=== PATIENT | female | born 1965 | race Caucasian/White ===

== ENCOUNTER → 2016-09-10 | Outpatient (CLI) | payer OTHER ==
--- NOTE | 2016-09-10 16:52 | REP ---
Clinical: Lower back pain and sciatica. Technique: AP, lateral, bilateral oblique and coned-down views of the lumbosacral spine. Findings: Mild to early moderate multilevel degenerative changes include endplate sclerosis with disc space narrowing and marginal osteophytes. Alignment and lordosis maintained. No acute fracture / compression injury or subluxation. Hypertrophic facet changes at L5-S1 are suggested as well. Impression: Moderate multilevel degenerative changes. Signed by Bello Cote MD 09/10/2016 04:44 P
== END ==
LOC: M ADAMS 16:24
PROVIDERS: ATTEND Physician Assistant
DX: M51.16 Intervertebral disc disorders with radiculopathy, lumbar region (principal)

== ENCOUNTER → 2016-10-31 | Outpatient (CLI) | payer OTHER ==
--- NOTE | 2016-10-31 09:02 | REPMRS ---
Patient History The patient states she has not had a clinical breast exam in over a year. No known family history of cancer. Digital Woman Screen Mammo: October 31, 2016 - Exam #: [id number] Bilateral CC and MLO view(s) were taken. Technologist: Humera Gomez, Technologist Prior study comparison: October 19, 2015, digital woman screen mammo performed at [facility] to [facility]. December 25, 2011, digital woman screen mammo performed at [facility] to [facility]. FINDINGS: The breast tissue is heterogeneously dense. This may lower the sensitivity of mammography. There has been no change in the appearance of the mammogram from the prior studies. There is a moderate amount of residual fibroglandular tissue which is fairly symmetric. There is no interval development of dominant mass, areas of architectural distortion, or clustered microcalcification typical of malignancy. ASSESSMENT: BI-RADS/ACR category 1 mammogram. Negative. Recommendation Routine screening mammogram in 1 year (for women over age 40). This mammogram was interpreted with the aid of an FDA-approved computer-aided dectection system. Electronically Signed By: Darek Mcdonough MD 10/31/16 0902
== END ==
LOC: M WHC 07:57
PROVIDERS: ATTEND Physician Assistant
DX: Z12.31 Encounter for screening mammogram for malignant neoplasm of breast (principal)

== ENCOUNTER → 2016-11-01 | Outpatient (REF) | payer OTHER | LOC: M LAB REF 12:13 | PROVIDERS: ATTEND Physician Assistant | DX: R30.0 Dysuria (principal) ==

== ENCOUNTER → 2017-07-02 | Outpatient (REF) | payer OTHER ==
[2017-07-02 14:54] LABS: BASO # 0.1 10^3/uL (0.0-0.2); BASO % 0.9 % (0.0-1.0); EOS # 0.2 10^3/uL (0.0-0.50); EOS % 2.9 % (0.0-3.0); HEMATOCRIT 44.3 % (36.0-47.0); HEMOGLOBIN 15.2 g/dl (12.0-15.5); IMMATURE GRANULOCYTE % 0.3 % (0-3.0); LYMPH % 37.8 % (24.0-44.0); MEAN CORPUSCULAR HEMOGLOBIN 31.5 pg (27.0-33.0); MEAN CORPUSCULAR HGB CONC 34.3 g/dl (32.0-36.5); MEAN CORPUSCULAR VOLUME 91.9 fl (80.0-96.0); MONO # 0.7 10^3/uL (0.0-0.8); MONO % 8.4 % (0.0-5.0); NEUTROPHILS % 49.7 % (36.0-66.0); PLATELET COUNT, AUTOMATED 313 10^3/uL (150-450); RED BLOOD COUNT 4.82 10^6/uL (4.00-5.40); RED CELL DISTRIBUTION WIDTH 12.5 % (11.5-14.5); WHITE BLOOD COUNT 7.9 10^3/uL (4.0-10.0)
[2017-07-02 14:56] LABS: APPEARANCE, URINE HAZY (CLEAR); BACTERIA, URINE AUTO 1+ (NEGATIVE); BILIRUBIN, URINE AUTO NEGATIVE (NEGATIVE); BLOOD, URINE BLOOD NEGATIVE (NEGATIVE); COLOR, URINE YELLOW (YELLOW); GLUCOSE, URINE (UA) AUTO NEGATIVE (NEGATIVE); KETONE, URINE AUTO TRACE mg/dL (NEGATIVE); LEUKOCYTE ESTERASE, URINE AUTO NEGATIVE (NEGATIVE); MUCUS, URINE SMALL (NEGATIVE); NITRITE, URINE AUTO NEGATIVE (NEGATIVE); PROTEIN, URINE AUTO NEGATIVE (NEGATIVE); RBC, URINE AUTO 0 /HPF (0-3); SPECIFIC GRAVITY URINE AUTO 1.014 (1.002-1.035); SQUAMOUS EPITHELIAL CELL UR AU 5 /HPF (0-6); UROBILINOGEN, URINE AUTO 0.2 mg/dL (0.0-2.0); WBC, URINE AUTO 1 /HPF (0-3)
[2017-07-02 15:07] LABS: ANION GAP 3 MEQ/L (8-16); BLOOD UREA NITROGEN 14 MG/DL (7-18); CARBON DIOXIDE LEVEL 29 MEQ/L (21-32); CHLORIDE LEVEL 109 MEQ/L (98-107); CREATININE FOR GFR 0.74 MG/DL (0.55-1.30); GLOMERULAR FILTRATION RATE > 60.0 (>51); GLUCOSE, FASTING 71 MG/DL (70-100); POTASSIUM SERUM 4.1 MEQ/L (3.5-5.1); SODIUM LEVEL 141 MEQ/L (136-145)
== END ==
LOC: M SFHCLACO 08:20
DX: D72.829 Elevated white blood cell count, unspecified (principal); R53.83 Other fatigue; R61 Generalized hyperhidrosis

== ENCOUNTER → 2017-11-01 | Outpatient (CLI) | payer OTHER | LOC: M WHC 12:35 | DX: Z12.31 Encounter for screening mammogram for malignant neoplasm of breast (principal); F17.200 Nicotine dependence, unspecified, uncomplicated; N60.31 Fibrosclerosis of right breast; N60.32 Fibrosclerosis of left breast | CPT/HCPCS: 77067 ==

== ENCOUNTER → 2017-12-19 | Outpatient (REF) | payer OTHER | LOC: M LAB REF 11:01 | DX: N39.0 Urinary tract infection, site not specified (principal) ==

== ENCOUNTER → 2018-02-04 | Outpatient (CLI) | payer OTHER | LOC: M LRY 13:53 | DX: M06.09 Rheumatoid arthritis without rheumatoid factor, multiple sites (principal) | CPT/HCPCS: 73130 ==

== ENCOUNTER → 2018-02-04 | Outpatient (REF) | payer OTHER ==
[2018-02-04 18:24] LABS: URIC ACID 3.1 MG/DL (2.6-6.0)
[2018-02-04 18:24] LABS: COMPLEMENT C3 100 MG/DL (90-180); COMPLEMENT C4 19 MG/DL (10-40); CREATININE,RANDOM URINE 29.7 MG/DL; RHEUMATOID FACTOR QUANT < 10.0 IU/ML (<15.0); THYROID STIMULATING HORMONE 0.895 uIU/ML (0.358-3.740); TOTAL PROTEIN,RANDOM URINE < 5.0 MG/DL (0.0-12.0)
[2018-02-04 18:32] LABS: APPEARANCE, URINE CLEAR (CLEAR); BACTERIA, URINE AUTO 1+ (NEGATIVE); BILIRUBIN, URINE AUTO NEGATIVE (NEGATIVE); BLOOD, URINE BLOOD 1+ (NEGATIVE); COLOR, URINE YELLOW (YELLOW); GLUCOSE, URINE (UA) AUTO NEGATIVE (NEGATIVE); KETONE, URINE AUTO NEGATIVE (NEGATIVE); LEUKOCYTE ESTERASE, URINE AUTO NEGATIVE (NEGATIVE); NITRITE, URINE AUTO NEGATIVE (NEGATIVE); PROTEIN, URINE AUTO NEGATIVE (NEGATIVE); RBC, URINE AUTO 0 /HPF (0-3); SPECIFIC GRAVITY URINE AUTO 1.006 (1.002-1.035); SQUAMOUS EPITHELIAL CELL UR AU 1 /HPF (0-6); UROBILINOGEN, URINE AUTO 0.2 mg/dL (0.0-2.0); WBC, URINE AUTO 0 /HPF (0-3)
[2018-02-09 00:06] LABS: ANA (HEP2) Negative (.); ANTI DOUBLE STRAND-DNA AB <1 IU/mL (0-9); BETA-2 GLYCOPROTEIN I ABY IGA <9 (0-25); BETA-2 GLYCOPROTEIN I ABY IGG <9 (0-20); BETA-2 GLYCOPROTEIN I ABY IGM <9 (0-32); CARDIOLIPIN IGA ANTIBODY <9 APL U/mL (0-11); CARDIOLIPIN IGG ANTIBODY <9 GPL U/mL (0-14); CARDIOLIPIN IGM ANTIBODY 30 MPL U/mL (0-12); CYCLIC CITRULLINATED PEPTIDE 26 units (0-19); RNP ANTIBODY 0.2 AI (0.0-0.9); SMITHS ANTIBODY < 0.2 AI (0.0-0.9); SSA SJOGRENS A <0.2 AI (0.0-0.9); SSB SJOGRENS B <0.2 AI (0.0-0.9)
[2018-02-11 10:19] LABS: DRVV SCREEN 44.7 SEC
[2018-02-11 10:26] LABS: PTT LUPUS TYPE ANTICOAG SCREEN 1.1 (0-1.2)
== END ==
LOC: M SFHCLERA 13:40
DX: M32.9 Systemic lupus erythematosus, unspecified (principal); M06.09 Rheumatoid arthritis without rheumatoid factor, multiple sites
CPT/HCPCS: 84443

== ENCOUNTER 2018-04-22 11:40 | Emergency (ER) | payer OTHER ==
[~2018-04-22] VITALS: Ht 170.2 cm; Wt 74.1 kg
[2018-04-22] MEDS ORDERED: XELJ11TA (11:49)
[2018-04-22] MEDS ORDERED: ZOLP10TA2 (11:49)
[2018-04-22] MEDS ORDERED: GABA-1171 PO (14:47)
[2018-04-22 15:00] VITALS: BP 133/73
--- NOTE | 2018-04-23 09:00 | ECGEPIP ---
Stationary ECG Study [facility] - ED Test Date: 2018-04-22 Pat Name: ADALI GILBERT Department: Room: - Gender: F [employer]: : [id number] Requested By: GERALD Bloom PA-C Order Number: [id number] Reading MD: Melo Foss Measurements Intervals [place] Rate: 60 P: 49 AR: 144 QRS: 40 QRSD: 95 T: 77 QT: 427 QTc: 428 Interpretive Statements SINUS RHYTHM INCOMPLETE RIGHT BUNDLE BRANCH BLOCK NONSPECIFIC T-WAVE ABNORMALITY NO PRIORS FOR COMPARISON Electronically Signed On 04-23-2018 9:00:29 EST by Melo Foss
--- NOTE | 2018-05-01 12:15 | ED PDOC ---
Post-Departure Follow-Up [facility] faxed formal report of mri c spine for fu Evert Gusman MD May 01, 2018 12:15
== END 2018-04-22 15:00 | disposition home or self-care (01) ==
LOC: M ED 11:40
DX: M54.12 Radiculopathy, cervical region (principal); F17.210 Nicotine dependence, cigarettes, uncomplicated

== ENCOUNTER → 2018-05-01 | Outpatient (CLI) | payer OTHER ==
[~2018-05-01] MED LIST: GABA-1171 PO; XELJ11TA; ZOLP10TA2
--- NOTE | 2018-05-01 08:55 | REP ---
MRI CERVICAL SPINE WITHOUT CONTRAST: HISTORY: Radiculopathy. A small central disc protrusion is present at the C2-3 level. There is minimal effacement of the thecal sac without spinal cord compression. The C2 neural foramina are patent. A disc bulge with associated osteophyte formation is present at the C3-4 level. There is minimal effacement of the thecal sac without spinal cord compression. Uncinate process hypertrophy is present on the left. This produces mild narrowing of the left C3 neural foramen. The right C3 neural foramen is patent. A disc bulge is present at the C4-5 level. There is moderate effacement of the thecal sac without spinal cord compression. Bilateral uncinate process and left facet hypertrophy are present. These findings produce minimal and moderate narrowing of the right and left C4 neural foramina respectively. A disc bulge and small central disc protrusion with associated osteophyte formation are present at the C5-6 level. There is minimal spinal cord compression. Bilateral uncinate process hypertrophy is present. This produces moderate narrowing of the C5 neural foramina. Uncinate process hypertrophy is present on the left at the C6-7 level. This produces mild narrowing of the left C6 neural foramen. The right C6 neural foramen is patent. There is no other disc bulge or herniation. The remaining neural foramina are patent. The spinal cord is normal in signal intensity. The C4-5 and C5-6 intervertebral discs are decreased in height consistent with disc degeneration. Normal signal intensity is present in the cervical vertebral bodies. IMPRESSION: There is cervical spondylosis at the C2-3 through C6-7 levels most significant at the C5-6 level where there is minimal spinal cord compression. Electronically Signed by Ruben Mcgregor MD 05/01/2018 09:15 A
== END ==
LOC: M RAD 07:04
PROVIDERS: ATTEND Emergency Medicine
DX: M47.12 Other spondylosis with myelopathy, cervical region (principal)

== ENCOUNTER → 2018-05-08 | Outpatient (REF) | payer OTHER ==
[2018-05-08 19:36] LABS: ALBUMIN 3.9 GM/DL (3.2-5.2); ALT/SGPT 20 U/L (12-78); BILIRUBIN,TOTAL 0.3 MG/DL (0.2-1.0); BLOOD UREA NITROGEN 14 MG/DL (7-18); C REACTIVE PROTEIN QUANTITATIV < 0.30 MG/DL (0.00-0.30); CALCIUM LEVEL 8.7 MG/DL (8.5-10.1); CARBON DIOXIDE LEVEL 30 MEQ/L (21-32); CHLORIDE LEVEL 104 MEQ/L (98-107); GLOMERULAR FILTRATION RATE > 60.0 (>51); GLUCOSE, FASTING 82 MG/DL (70-100); POTASSIUM SERUM 3.9 MEQ/L (3.5-5.1); SODIUM LEVEL 140 MEQ/L (136-145); TOTAL PROTEIN 6.8 GM/DL (6.4-8.2)
[2018-05-08 19:46] LABS: BASO # 0.1 10^3/uL (0.0-0.2); BASO % 0.7 % (0.0-1.0); EOS # 0.3 10^3/uL (0.0-0.50); EOS % 3.1 % (0.0-3.0); HEMATOCRIT 43.8 % (36.0-47.0); HEMOGLOBIN 14.9 g/dl (12.0-15.5); LYMPH % 32.1 % (24.0-44.0); MEAN CORPUSCULAR HEMOGLOBIN 32.3 pg (27.0-33.0); MONO # 0.9 10^3/uL (0.0-0.8); MONO % 9.7 % (0.0-5.0); NEUTROPHILS # 5.1 10^3/uL (1.8-7.7); NEUTROPHILS % 54.2 % (36.0-66.0); PLATELET COUNT, AUTOMATED 258 10^3/uL (150-450); RED BLOOD COUNT 4.61 10^6/uL (4.00-5.40); WHITE BLOOD COUNT 9.4 10^3/uL (4.0-10.0)
[2018-05-08 20:13] LABS: ERYTHROCYTE SEDIMENTATION RATE 8 mm/hr (0-30)
== END ==
LOC: M SFHCADAM 14:21
PROVIDERS: ATTEND Internal Medicine Rheumatology
DX: M06.09 Rheumatoid arthritis without rheumatoid factor, multiple sites (principal)

== ENCOUNTER → 2018-07-02 | Outpatient (REF) | payer OTHER ==
[2018-07-02 12:19] LABS: INR 1.01; PROTHROMBIN TIME 13.4 SECONDS (12.1-14.4)
[2018-07-02 12:20] LABS: PARTIAL THROMBOPLASTIN TIME 32.6 SECONDS (25.4-37.6)
== END ==
LOC: M LABDRAW1 11:14
PROVIDERS: ATTEND Physician Assistant
DX: Z01.812 Encounter for preprocedural laboratory examination (principal)

== ENCOUNTER → 2019-01-15 | Outpatient (CLI) | payer OTHER ==
--- NOTE | 2019-01-15 12:53 | REP ---
BILATERAL MAMMOGRAM WITH 3D TOMOSYNTHESIS: No family history of breast cancer. [facility] lifetime risk of breast cancer 7.8%. COMPARISON: 11/01/2017 as well as other prior exams. Moderate fibroglandular tissue is again seen bilaterally in a fairly symmetrical pattern and for the most part, stable. However, there is a lobulated nodule in the lower left breast measuring 6 to 7 mm in maximum diameter. Margins are fairly well circumscribed. I see no other evidence of mass, architectural distortion or clustered microcalcifications. IMPRESSION: BIRADS 0: BI-RADS/ACR category 0 mammogram, Incomplete: Need additional imaging evaluation and/or prior mammograms for comparison. Lobulated 7 mm well-circumscribed nodule inferior left breast. Recommend spot compression views and ultrasound to further evaluate. ACR 0 incomplete. This mammogram was interpreted with the aid of an FDA-approved computer-aided detection system. A. Negative x-ray reports should not delay biopsy if a dominant or clinically suspicious mass is present. B. Four to eight percent of cancers are not identified by x-ray. C. Adenosis and dense breasts may obscure an underlying neoplasm. The patient states she/he had a clinical breast exam in December 2018. The patient letter being requested is M0
== END ==
LOC: M WHC 09:56
PROVIDERS: ATTEND Physician Assistant
DX: Z12.31 Encounter for screening mammogram for malignant neoplasm of breast (principal); R92.8 Other abnormal and inconclusive findings on diagnostic imaging of breast

== ENCOUNTER → 2019-04-08 | Outpatient (CLI) | payer OTHER ==
--- NOTE | 2019-04-09 02:11 | REP ---
Clinical: Lumbar pain. Radiculopathy. Technique: AP, lateral, coned-down views of the lumbosacral spine. Findings: Lateral view best demonstrates an plate sclerosis with minimal disc space narrowing and marginal spurring primarily involving L2-3 and L3-4. Alignment is maintained. No acute fracture / compression injury or subluxation. Impression: Mild degenerative spondylosis. Electronically Signed by Bello Cote MD 04/09/2019 02:03 A
== END ==
LOC: M ADAMS 09:55
PROVIDERS: ATTEND Physician Assistant
DX: M47.896 Other spondylosis, lumbar region (principal); M54.16 Radiculopathy, lumbar region

== ENCOUNTER → 2019-10-15 | Outpatient (REF) | payer OTHER ==
[2019-11-18 11:59] LABS: C REACTIVE PROTEIN QUANTITATIV < 0.30 MG/DL (0.00-0.30); RHEUMATOID FACTOR QUANT < 10.0 IU/ML (<15.0)
[2019-11-28 11:04] LABS: ANTINUCLEAR ANTIBODIES DIRECT See Separate Report
[2019-12-04 06:44] LABS: HLA-B27 SEE SEPARATE REPORT
== END ==
LOC: M LABDRWAD 16:28
PROVIDERS: ATTEND Physician Assistant
DX: M47.817 Spondylosis without myelopathy or radiculopathy, lumbosacral region (principal)

== ENCOUNTER 2019-10-22 12:35 | Emergency (ER) | payer OTHER ==
[2019-10-22] MEDS ORDERED: KETOROLAC TROMETHAMINE 10 MG TAB As Ordered ONE (14:13)
[2019-10-22] MEDS ORDERED: KETOROLAC TROMETHAMINE 10 MG TAB ONE (14:13)
--- NOTE | 2019-12-08 10:26 | REP ---
LEFT HAND SERIES: FOUR VIEWS HISTORY: Injury in a fall. Report is delayed due to a malware attack on this facility. FINDINGS: Four views of the left hand demonstrate overall normal mineralization. No fracture or subluxation is visible. No opaque foreign body is seen. IMPRESSION: Negative radiographs of the left hand. MTDD
== END 2019-10-22 16:15 | disposition home or self-care (01) ==
LOC: M ED 12:35
DX: S62.002A Unspecified fracture of navicular [scaphoid] bone of left wrist, initial encounter for closed fracture (principal); S49.92XA Unspecified injury of left shoulder and upper arm, initial encounter; S39.012A Strain of muscle, fascia and tendon of lower back, initial encounter; W01.0XXA Fall on same level from slipping, tripping and stumbling without subsequent striking against object, initial encounter; Y99.0 Civilian activity done for income or pay; Z88.2 Allergy status to sulfonamides; Z79.899 Other long term (current) drug therapy

== ENCOUNTER → 2019-11-04 | Outpatient (REF) | payer OTHER ==
[2019-11-04 13:58] LABS: COLLAGEN EPINEPHRINE 107 SECONDS (74-162)
[2019-11-04 14:05] LABS: INR 0.99; PROTHROMBIN TIME 13.3 SECONDS (11.8-14.0)
[2019-11-04 14:06] LABS: PARTIAL THROMBOPLASTIN TIME 30.9 SECONDS (25.0-38.4)
[2019-11-04 14:20] LABS: PLATELET COUNT, AUTOMATED 264 10^3/uL (150-450)
== END ==
LOC: M LABDRWAD 12:51
PROVIDERS: ATTEND Physician Assistant
DX: M47.817 Spondylosis without myelopathy or radiculopathy, lumbosacral region (principal)

== ENCOUNTER → 2019-12-23 | Outpatient (CLI) | payer OTHER | LOC: M LABSMTC 10:01 | PROVIDERS: ATTEND Physical Medicine & Rehabilitation | DX: Z11.59 Encounter for screening for other viral diseases (principal) ==

== ENCOUNTER → 2020-02-24 | Outpatient (CLI) | payer OTHER | LOC: M LABSMTC 10:54 | PROVIDERS: ATTEND Physical Medicine & Rehabilitation | DX: Z01.812 Encounter for preprocedural laboratory examination (principal); Z20.828 Contact with and (suspected) exposure to other viral communicable diseases ==

== ENCOUNTER → 2020-06-22 | Outpatient (REF) | payer OTHER ==
[2020-06-22 17:20] LABS: PLATELET COUNT, AUTOMATED 271 10^3/uL (150-450)
[2020-06-22 17:31] LABS: INR 1.02; PROTHROMBIN TIME 13.6 SECONDS (12.5-14.3)
[2020-06-22 17:32] LABS: PARTIAL THROMBOPLASTIN TIME 30.2 SECONDS (24.2-38.5)
[2020-06-22 17:42] LABS: BLOOD UREA NITROGEN 16 MG/DL (7-18); CREATININE FOR GFR 0.64 MG/DL (0.55-1.30); GLOMERULAR FILTRATION RATE > 60.0 (>51)
== END ==
LOC: M LABDRWAD 16:54
PROVIDERS: ATTEND Physician Assistant
DX: M47.817 Spondylosis without myelopathy or radiculopathy, lumbosacral region (principal)

== ENCOUNTER 2020-07-04 10:53 | Outpatient (RCR) | payer OTHER | END 2020-07-15 | LOC: M OT 10:53 | PROVIDERS: ATTEND Pain Medicine Interventional Pain Medicine | DX: M79.642 Pain in left hand (principal) ==

== ENCOUNTER → 2020-09-13 | Outpatient (REF) ==
--- NOTE | 2020-09-13 13:25 | REP ---
INDICATION: [facility] [employer]- BACK PAIN. COMPARISON: No comparison cervical spine radiographs. Comparison is made with images from MRI study of the cervical spine May 01, 2018.. TECHNIQUE: Four views of the cervical spine include open-mouth odontoid, AP, lateral, and swimmer's lateral views. FINDINGS: There is straightening of the normal cervical lordosis. Vertebral body heights are preserved. Alignment is normal. There is degenerative disc disease at each level from C3-4 through C C6-7. The disc space narrowing is most pronounced at C4-5 and C5-6. Prevertebral soft tissues are not swollen. Swimmer's lateral view shows no additional abnormality. Open mouth odontoid view is unremarkable. No abnormality is noted on the AP radiograph. IMPRESSION: Degenerative disc disease with disc space narrowing most pronounced at C4-5 and C5-6 unchanged from the comparison MRI images. Straightening. <Electronically signed by Ken Lutz > 09/13/20 [id number]
== END ==
LOC: M PLAIMG 11:58
PROVIDERS: ATTEND Internal Medicine
DX: M50.321 Other cervical disc degeneration at C4-C5 level (principal); M50.322 Other cervical disc degeneration at C5-C6 level

== ENCOUNTER → 2020-10-04 | Outpatient (CLI) | payer OTHER ==
--- NOTE | 2020-10-05 21:00 | REPVR ---
PROCEDURE INFORMATION: Exam: MR Cervical Spine Without Contrast Exam date and time: 10/04/2020 2:22 PM Age: 54 years old Clinical indication: Condition or disease; Spondylosis; Cervicalthoracic region; Additional info: Spondylosis cervical region TECHNIQUE: Imaging protocol: Multiplanar magnetic resonance images of the cervical spine without contrast. COMPARISON: MRI-Spine,Cervical without con 05/01/2018 7:38 AM FINDINGS: Cervical vertebral body heights are intact. Straightening of the cervical lordosis. The dens is intact. No abnormal marrow signal. No cord compression, expansion, or abnormal cord signal. Visualized structures of the posterior fossa are unremarkable. Soft tissues are unremarkable. Heterogeneously enlarged thyroid gland. C2-C3: No significant canal or foraminal narrowing. C3-C4: Uncovertebral spurring causes moderate left foraminal narrowing. No significant canal narrowing. C4-C5: Uncovertebral spurring causes moderate bilateral foraminal narrowing. No significant canal narrowing. C5-C6: Posterior disc protrusion and uncovertebral spurring cause mild to moderate canal narrowing with effacement of the anterior thecal sac. Moderate to severe bilateral foraminal narrowing. C6-C7: Uncovertebral spurring causes moderate to severe left foraminal narrowing. No significant canal narrowing. C7-T1: No significant canal or foraminal narrowing. IMPRESSION: 1. Multilevel spondylotic changes of the cervical spine, as detailed above. 2. Heterogeneously enlarged thyroid gland. Correlate with dedicated thyroid ultrasound. Electronically signed by: Trino Larsen On 10/05/2020 20:59:51 PM
== END ==
LOC: M RAD 13:29
PROVIDERS: ATTEND Physician Assistant
DX: M47.22 Other spondylosis with radiculopathy, cervical region (principal); E07.9 Disorder of thyroid, unspecified

== ENCOUNTER → 2021-02-07 | Outpatient (REF) | payer OTHER ==
[2021-02-07 13:33] LABS: BASO # 0.1 10^3/uL (0.0-0.2); BASO % 0.9 % (0.0-1.0); EOS # 0.3 10^3/uL (0.0-0.5); HEMOGLOBIN 15.3 g/dl (12.0-15.5); LYMPH # 3.2 10^3/uL (1.5-5.0); LYMPH % 34.2 % (24.0-44.0); MEAN CORPUSCULAR HEMOGLOBIN 31.7 pg (27.0-33.0); MEAN CORPUSCULAR VOLUME 93.2 fl (80.0-96.0); MONO # 0.6 10^3/uL (0.0-0.8); MONO % 6.4 % (2.0-8.0); NEUTROPHILS # 5.1 10^3/uL (1.5-8.5); NEUTROPHILS % 55.1 % (36.0-66.0); PLATELET COUNT, AUTOMATED 221 10^3/uL (150-450); RED BLOOD COUNT 4.83 10^6/uL (4.00-5.40); WHITE BLOOD COUNT 9.2 10^3/uL (4.0-10.0)
[2021-02-07 14:10] LABS: ALBUMIN 4.2 GM/DL (3.2-5.2); ALT/SGPT 23 U/L (12-78); BILIRUBIN,DIRECT 0.1 MG/DL (0.0-0.2); BILIRUBIN,TOTAL 0.4 MG/DL (0.2-1.0); BLOOD UREA NITROGEN 14 MG/DL (7-18); CALCIUM LEVEL 9.6 MG/DL (8.5-10.1); CARBON DIOXIDE LEVEL 30 MEQ/L (21-32); CHLORIDE LEVEL 106 MEQ/L (98-107); CREATININE FOR GFR 0.76 MG/DL (0.55-1.30); GLOMERULAR FILTRATION RATE > 60.0 (>51); GLUCOSE, FASTING 76 MG/DL (70-100); IMMUNOGLOBULIN G 868 MG/DL (681-1648); IRON (FE) 142 UG/DL (50-170); MAGNESIUM LEVEL 2.7 MG/DL (1.8-2.4); PHOSPHORUS LEVEL 3.9 MG/DL (2.5-4.9); POTASSIUM SERUM 4.1 MEQ/L (3.5-5.1); SODIUM LEVEL 141 MEQ/L (136-145); TOTAL PROTEIN 7.5 GM/DL (6.4-8.2)
[2021-02-07 14:12] LABS: HEPATITIS B SURFACE ANTIBODY NEGATIVE (POSITIVE); TOTAL 25(OH) VITAMIN D 19.1 NG/ML (30.0-100.0)
[2021-02-07 14:17] LABS: ERYTHROCYTE SEDIMENTATION RATE 10 mm/hr (0-30)
[2021-02-07 14:24] LABS: HEPATITIS B SURFACE ANTIGEN NEGATIVE (NEGATIVE); VITAMIN B12 LEVEL 267 PG/ML (247-911)
[2021-02-07 14:52] LABS: HEPATITIS C VIRUS ABY INDEX 0.1 INDEX (<0.8)
[2021-02-08 13:04] LABS: ALBUMIN % 60.9 % (55.8-66.1)
[2021-02-08 13:05] LABS: ALPHA-1-GLOBULIN % 4.6 % (2.9-4.9)
[2021-02-08 14:07] LABS: ALBUMIN 4.57 GM/DL (3.29-5.55); ALPHA-1-GLOBULINS 0.35 GM/DL (0.17-0.41); ALPHA-2-GLOBULINS 0.89 GM/DL (0.42-0.99); ALPHA-2-GLOBULINS % 11.9 % (7.1-11.8); BETA-1-GLOBULINS 0.44 GM/DL (0.28-0.60); BETA-1-GLOBULINS % 5.9 % (4.7-7.2); BETA-2-GLOBULINS 0.28 GM/DL (0.19-0.55); BETA-2-GLOBULINS % 3.7 % (3.2-6.5); GAMMA GLOBULINS 0.98 GM/DL (0.65-1.58)
== END ==
LOC: M SFHCRHEU 11:32
PROVIDERS: ATTEND Internal Medicine
DX: Z11.59 Encounter for screening for other viral diseases (principal); M79.10 Myalgia, unspecified site; M06.09 Rheumatoid arthritis without rheumatoid factor, multiple sites

== ENCOUNTER → 2021-02-23 | Outpatient (CLI) | payer OTHER ==
--- NOTE | 2021-02-24 05:26 | REP ---
INDICATION: JOINT PAIN COMPARISON: None. TECHNIQUE: AP, lateral, bilateral oblique views right and left foot. FINDINGS: The left foot demonstrates mild to moderate degenerative changes primarily involving the tarsonavicular joint including evidence for accessory navicular bone and sclerosis at the tarsometatarsal joints. Remainder of the examination is essentially age-appropriate. No evidence for acute injury. The right foot demonstrates mild to moderate degenerative changes primarily involving the tarsonavicular joint including evidence for accessory navicular bones and sclerosis at the tarsometatarsal joints as well as 3rd through 5th proximal interphalangeal joints with cortical irregularity and joint space narrowing. There is evidence for prior surgical intervention at the head of the 3rd metatarsal bone. IMPRESSION: Moderate degenerative changes primarily involving the midfoot and right 3rd through 5th interphalangeal joints. <Electronically signed by Bello Cote > 02/24/21 [id number]
--- NOTE | 2021-02-24 05:33 | REP ---
INDICATION: JOINT PAIN COMPARISON: None. TECHNIQUE: AP, lateral, bilateral oblique views right and left ankle. FINDINGS: Right and left ankle demonstrate normal appearance to the talar dome and ankle mortise. Medial and lateral malleoli are normal. No surrounding soft tissue swelling. IMPRESSION: Normal bilateral ankle radiograph series. <Electronically signed by Bello Cote > 02/24/21 [id number]
--- NOTE | 2021-02-24 05:35 | REP ---
INDICATION: JOINT PAIN COMPARISON: None. TECHNIQUE: AP, lateral, bilateral oblique views right and left wrist. FINDINGS: Left wrist: Carpal bones and associated joint spaces appear relatively intact and normal. There is minimally increased sclerosis along the radial surface with subtle radiocarpal joint space narrowing. No evidence for acute or healed injury. No chondrocalcinosis. Surrounding soft tissues are normal. Right wrist: Carpal bones and associated joint spaces appear relatively intact and normal. There is minimal increased sclerosis along the radial surface with subtle radiocarpal joint space narrowing. Findings suggest old ulnar styloid fracture. No acute fracture or dislocation. No chondrocalcinosis. Surrounding soft tissues are normal. IMPRESSION: Relatively symmetric age-appropriate examination. <Electronically signed by Bello Cote > 02/24/21 [id number]
--- NOTE | 2021-02-24 05:37 | REP ---
INDICATION: JOINT PAIN COMPARISON: None. TECHNIQUE: AP, lateral, bilateral oblique views right and left hand. FINDINGS: The osseous structures and joint spaces are essentially symmetric, intact and age-appropriate. Very minimal periarticular sclerosis and joint space narrowing suggested at the 1st metacarpophalangeal and interphalangeal joint bilaterally. There is no evidence for acute fracture or dislocation. Surrounding soft tissues are unremarkable. No subcutaneous emphysema or radiodense foreign body. IMPRESSION: Essentially symmetric age-appropriate examination. Very minimal early changes at the 1st digits suggested. <Electronically signed by Bello Cote > 02/24/21 0547
== END ==
LOC: M ADAMS 13:37
PROVIDERS: ATTEND Internal Medicine
DX: M06.09 Rheumatoid arthritis without rheumatoid factor, multiple sites (principal)

== ENCOUNTER → 2021-09-26 | Outpatient (CLI) | payer OTHER | LOC: M SOG 15:27 | PROVIDERS: ATTEND Orthopaedic Surgery | DX: M51.36 Other intervertebral disc degeneration, lumbar region (principal) ==

== ENCOUNTER → 2021-11-27 | Outpatient (CLI) | payer OTHER | LOC: M RAD 08:56 | PROVIDERS: ATTEND Orthopaedic Surgery | DX: M47.816 Spondylosis without myelopathy or radiculopathy, lumbar region (principal); M51.36 Other intervertebral disc degeneration, lumbar region; M48.061 Spinal stenosis, lumbar region without neurogenic claudication ==

== ENCOUNTER → 2022-02-06 | Outpatient (REF) | payer OTHER ==
[2022-02-06 13:36] LABS: BASO # 0.1 10^3/uL (0.0-0.2); BASO % 0.9 % (0.0-1.0); EOS # 0.5 10^3/uL (0.0-0.5); HEMATOCRIT 43.2 % (36.0-47.0); HEMOGLOBIN 14.5 g/dl (12.0-15.5); LYMPH % 32.1 % (24.0-44.0); MEAN CORPUSCULAR HEMOGLOBIN 32.3 pg (27.0-33.0); MEAN CORPUSCULAR HGB CONC 33.6 g/dl (32.0-36.5); MEAN CORPUSCULAR VOLUME 96.2 fl (80.0-96.0); MONO # 0.9 10^3/uL (0.0-0.8); MONO % 9.3 % (2.0-8.0); NEUTROPHILS # 4.9 10^3/uL (1.5-8.5); NEUTROPHILS % 52.3 % (36.0-66.0); PLATELET COUNT, AUTOMATED 295 10^3/uL (150-450); RED BLOOD COUNT 4.49 10^6/uL (4.00-5.40); WHITE BLOOD COUNT 9.4 10^3/uL (4.0-10.0)
[2022-02-06 14:35] LABS: ALBUMIN 3.8 G/DL (3.2-5.2); ALT/SGPT 12 U/L (7.0-40); BILIRUBIN,TOTAL 0.4 MG/DL (0.3-1.2); BLOOD UREA NITROGEN 16 MG/DL (9-23); CALCIUM LEVEL 9.2 MG/DL (8.5-10.1); CARBON DIOXIDE LEVEL 28 MMOL/L (20-31); CHLORIDE LEVEL 107 MMOL/L (98-107); CHOLESTEROL LEVEL 182 MG/DL (<200); CHOLESTEROL RISK RATIO 3.22 (<5); CREATININE FOR GFR 0.66 MG/DL (0.55-1.30); GLOMERULAR FILTRATION RATE > 60.0 (>51); GLUCOSE, FASTING 91 MG/DL (60-100); HDL CHOLESTEROL 56.5 MG/DL (>40); LDL CHOLESTEROL 103.9 MG/DL (<100); NON-HDL-C 126 MG/DL; POTASSIUM SERUM 4.4 MMOL/L (3.5-5.1); SODIUM LEVEL 143 MMOL/L (136-145); THYROID STIMULATING HORMONE 2.371 uIU/ML (0.55-4.78); TOTAL 25(OH) VITAMIN D 25.7 NG/ML (20.0-100.0); TOTAL PROTEIN 6.6 G/DL (5.7-8.2); TRIGLYCERIDES LEVEL 108 MG/DL (<150); VITAMIN B12 LEVEL 397 PG/ML (211-911)
== END ==
LOC: M SFHCADAM 09:45
PROVIDERS: ATTEND Physician Assistant Medical
DX: E55.9 Vitamin D deficiency, unspecified (principal); E53.8 Deficiency of other specified B group vitamins

== ENCOUNTER → 2022-05-29 | Outpatient (CLI) | payer OTHER | LOC: M WHC 10:12 | PROVIDERS: ATTEND Physician Assistant Medical | DX: Z12.31 Encounter for screening mammogram for malignant neoplasm of breast (principal) ==

== ENCOUNTER → 2022-07-26 | Outpatient (REF) | payer OTHER | LOC: M LAB REF 16:04 | PROVIDERS: ATTEND Nurse Practitioner Family | DX: R30.0 Dysuria (principal); N39.0 Urinary tract infection, site not specified ==

== ENCOUNTER → 2022-09-03 | Outpatient (REF) | payer OTHER ==
[2022-09-03 16:18] LABS: INR 0.98; PROTHROMBIN TIME 13.2 SECONDS (12.5-14.5)
[2022-09-03 16:19] LABS: PARTIAL THROMBOPLASTIN TIME 28.2 SECONDS (24.8-34.2)
[2022-09-03 16:23] LABS: PLATELET COUNT, AUTOMATED 290 10^3/uL (150-450)
== END ==
LOC: M LABDRWAD 15:56
PROVIDERS: ATTEND Physician Assistant
DX: Z01.818 Encounter for other preprocedural examination (principal)

== ENCOUNTER → 2022-09-03 | Outpatient (REF) | payer OTHER ==
[2022-09-03 16:23] LABS: HEMATOCRIT 44.8 % (36.0-47.0); HEMOGLOBIN 14.9 g/dl (12.0-15.5); MEAN CORPUSCULAR HEMOGLOBIN 31.7 pg (27.0-33.0); MEAN CORPUSCULAR HGB CONC 33.3 g/dl (32.0-36.5); MEAN CORPUSCULAR VOLUME 95.3 fl (80.0-96.0); PLATELET COUNT, AUTOMATED 300 10^3/uL (150-450); WHITE BLOOD COUNT 8.8 10^3/uL (4.0-10.0)
[2022-09-03 16:26] LABS: ALBUMIN 3.8 G/DL (3.2-5.2); ALKALINE PHOSPHATASE 86 U/L (46-116); ALT/SGPT 17 U/L (7.0-40); AST/SGOT 17 U/L (<34); BILIRUBIN,TOTAL 0.3 MG/DL (0.3-1.2); BLOOD UREA NITROGEN 14 MG/DL (9-23); CALCIUM LEVEL 8.8 MG/DL (8.5-10.1); CARBON DIOXIDE LEVEL 31 MMOL/L (20-31); CHLORIDE LEVEL 105 MMOL/L (98-107); CHOLESTEROL LEVEL 199 MG/DL (<200); CHOLESTEROL RISK RATIO 3.07 (<5); CREATININE FOR GFR 0.76 MG/DL (0.55-1.30); GLOMERULAR FILTRATION RATE > 60.0 (>51); GLUCOSE, FASTING 86 MG/DL (60-100); HDL CHOLESTEROL 64.8 MG/DL (>40); LDL CHOLESTEROL 104.4 MG/DL (<100); NON-HDL-C 134.2 MG/DL; POTASSIUM SERUM 4.2 MMOL/L (3.5-5.1); SODIUM LEVEL 141 MMOL/L (136-145); TOTAL PROTEIN 6.5 G/DL (5.7-8.2); TRIGLYCERIDES LEVEL 149 MG/DL (<150)
[2022-09-03 16:30] LABS: TOTAL 25(OH) VITAMIN D 18.7 NG/ML (20.0-100.0)
[2022-09-03 16:31] LABS: THYROID STIMULATING HORMONE 1.703 uIU/ML (0.55-4.78); VITAMIN B12 LEVEL 344 PG/ML (211-911)
== END ==
LOC: M SFHCADAM 13:46
PROVIDERS: ATTEND Physician Assistant Medical
DX: G43.109 Migraine with aura, not intractable, without status migrainosus (principal); E55.9 Vitamin D deficiency, unspecified; F51.01 Primary insomnia; F41.1 Generalized anxiety disorder; E53.8 Deficiency of other specified B group vitamins

== ENCOUNTER → 2023-01-21 | Outpatient (CLI) | payer OTHER ==
[~2023-01-21] MED LIST changes: +ISOVUE-300 61% 100ML VIAL As Ordered ONE; +LIDOCAINE 1% MDV 20ML VIAL As Ordered ONE; +TRIAMCINOLONE ACETONIDE SUSP 40MG/ML 1ML VIAL As Ordered ONE
== END ==
LOC: M RAD 13:58
PROVIDERS: ATTEND Physician Assistant
DX: M16.11 Unilateral primary osteoarthritis, right hip (principal)
CPT/HCPCS: 20610; 77002; J3301; Q9967

== ENCOUNTER → 2023-04-08 | Outpatient (REF) | payer OTHER ==
[~2023-04-08] MED LIST changes: -ISOVUE-300 61% 100ML VIAL As Ordered ONE; -LIDOCAINE 1% MDV 20ML VIAL As Ordered ONE; -TRIAMCINOLONE ACETONIDE SUSP 40MG/ML 1ML VIAL As Ordered ONE
[2023-04-08 16:50] LABS: PLATELET COUNT, AUTOMATED 285 10^3/uL (150-450)
[2023-04-08 17:21] LABS: INR 1.08; PROTHROMBIN TIME 13.7 SECONDS (12.5-14.5)
[2023-04-08 17:22] LABS: PARTIAL THROMBOPLASTIN TIME 29.1 SECONDS (24.8-34.2)
== END ==
LOC: M LABDRWAD 16:17
PROVIDERS: ATTEND Physician Assistant
DX: Z01.818 Encounter for other preprocedural examination (principal)

== ENCOUNTER → 2023-05-31 | Outpatient (CLI) | payer OTHER | LOC: M WHC 09:14 | PROVIDERS: ATTEND Physician Assistant Medical | DX: Z12.31 Encounter for screening mammogram for malignant neoplasm of breast (principal) ==

== ENCOUNTER → 2023-09-03 | Outpatient (REF) | payer OTHER ==
[2023-09-03 18:44] LABS: BASO # 0.1 10^3/uL (0.0-0.2); BASO % 0.7 % (0.0-1.0); EOS # 0.3 10^3/uL (0.0-0.5); EOS % 2.7 % (0.0-3.0); HEMOGLOBIN 15.6 g/dl (12.0-15.5); LYMPH # 3.3 10^3/uL (1.5-5.0); LYMPH % 34.8 % (24.0-44.0); MEAN CORPUSCULAR HEMOGLOBIN 32.6 pg (27.0-33.0); MEAN CORPUSCULAR HGB CONC 33.9 g/dl (32.0-36.5); MEAN CORPUSCULAR VOLUME 96.2 fl (80.0-96.0); MONO # 0.8 10^3/uL (0.0-0.8); MONO % 8.8 % (2.0-8.0); NEUTROPHILS # 5.1 10^3/uL (1.5-8.5); NEUTROPHILS % 52.8 % (36.0-66.0); PLATELET COUNT, AUTOMATED 310 10^3/uL (150-450); RED BLOOD COUNT 4.78 10^6/uL (4.00-5.40); WHITE BLOOD COUNT 9.6 10^3/uL (4.0-10.0)
[2023-09-03 18:51] LABS: ALKALINE PHOSPHATASE 94 U/L (46-116); ALT/SGPT 24 U/L (7.0-40); AST/SGOT 21 U/L (<34); BILIRUBIN,TOTAL 0.4 MG/DL (0.3-1.2); BLOOD UREA NITROGEN 16 MG/DL (9-23); CARBON DIOXIDE LEVEL 30 MMOL/L (20-31); CHLORIDE LEVEL 106 MMOL/L (98-107); CHOLESTEROL LEVEL 211 MG/DL (<200); CHOLESTEROL RISK RATIO 2.83 (<5); CREATININE FOR GFR 0.63 MG/DL (0.55-1.30); GLOMERULAR FILTRATION RATE > 60.0 (>51); GLUCOSE, FASTING 67 MG/DL (60-100); HDL CHOLESTEROL 74.4 MG/DL (>40); LDL CHOLESTEROL 118.8 MG/DL (<100); NON-HDL-C 136.6 MG/DL; SODIUM LEVEL 139 MMOL/L (136-145); TRIGLYCERIDES LEVEL 89 MG/DL (<150)
[2023-09-03 18:52] LABS: THYROID STIMULATING HORMONE 2.405 uIU/ML (0.55-4.78)
[2023-09-03 18:53] LABS: TOTAL 25(OH) VITAMIN D 66.3 NG/ML (20.0-100.0)
[2023-09-03 19:34] LABS: HEMOGLOBIN A1c 5.3 % (4.0-6.0)
== END ==
LOC: M SFHCADAM 11:59
PROVIDERS: ATTEND Physician Assistant Medical
DX: G43.109 Migraine with aura, not intractable, without status migrainosus (principal); F51.04 Psychophysiologic insomnia; E55.9 Vitamin D deficiency, unspecified; M15.9 Polyosteoarthritis, unspecified; F41.1 Generalized anxiety disorder

== ENCOUNTER 2023-11-04 10:28 | Day surgery (SDC) | payer OTHER ==
[~2023-11-04] VITALS: Ht 167.6 cm; Wt 64.9 kg
[~2023-11-04 10:28] MED LIST changes: +LEXA1TAB PO; +SUMA100T2 PO; +TRAM50TA2 PO; +ZOLP5TAB PO
[2023-11-04] MEDS: NS 1,000 ML IV ONE (11:15)
[2023-11-04] MEDS ORDERED: LIDOCAINE 2% 100MG/5ML SDV (FOR ANES.) As Ordered ONE (11:43)
[2023-11-04] MEDS ORDERED: propofoL 200 MG/20 ML VIAL As Ordered ONE (11:43)
[2023-11-04 12:30] VITALS: TEMP 97.2
[2023-11-04 12:55] VITALS: BP 137/66; O2SAT 95
== END 2023-11-04 13:03 | disposition home or self-care (01) ==
LOC: M OPP 10:28
PROVIDERS: ATTEND Surgery
DX: D37.4 Neoplasm of uncertain behavior of colon (principal); D12.6 Benign neoplasm of colon, unspecified; R19.5 Other fecal abnormalities; Z87.891 Personal history of nicotine dependence; Z79.891 Long term (current) use of opiate analgesic; Z79.899 Other long term (current) drug therapy; Z88.2 Allergy status to sulfonamides

== ENCOUNTER → 2024-06-01 | Outpatient (CLI) | payer OTHER, MEDICARE | LOC: M WHC 11:52 | PROVIDERS: ATTEND Physician Assistant Medical | DX: Z12.31 Encounter for screening mammogram for malignant neoplasm of breast (principal) ==

== ENCOUNTER → 2024-11-06 | Outpatient (REF) | payer OTHER | LOC: M LAB REF 17:06 | PROVIDERS: ATTEND Nurse Practitioner Family | DX: R30.0 Dysuria (principal) ==